=== PATIENT | male | born 1970 | race Caucasian/White ===

== ENCOUNTER 2017-11-19 22:32 | Emergency (ER) | payer SELFPAY ==
[2017-11-19 23:07] LABS: URINE BILIRUBIN NEGATIVE (NEGATIVE); URINE BLOOD NEGATIVE (NEGATIVE); URINE CLARITY Clear (Clear); URINE COLOR Straw (YELLOW); URINE GLUCOSE (UA) 3+ mg/dL (Normal); URINE LEUKOCYTE ESTERASE NEG Leu/uL (Negative); URINE PROTEIN NEGATIVE (NEGATIVE); URINE UROBILINOGEN NORMAL mg/dL (0.2-1.0)
[2017-11-19] MEDS ORDERED: Sodium Chloride 0.9% 1,000 ML IV ONE (23:26)
[2017-11-19] MEDS ORDERED: (Novolin R) Insulin Human Regular 100 units/ml vial IV STA ×2 (23:26→23:42)
[2017-11-19 23:40] LABS: BASO # 0.1 K/uL (0.0-0.2); EOS # 0.1 K/uL (0.0-0.7); EOS % 1.2 % (0.0-4.0); HEMOGLOBIN 14.5 g/dL (12.0-18.0); LYMPH # 2.1 K/uL (1.0-4.3); LYMPH % 28.3 % (20.0-40.0); MEAN CELL VOLUME 82.2 fL (80.0-94.0); MEAN CORPUSCULAR HEMOGLOBIN 28.7 pg (27.0-31.0); MEAN CORPUSCULAR HGB CONC 34.9 g/dL (33.0-37.0); MEAN PLATELET VOLUME 8.3 fL (7.2-11.7); MONO # 0.4 K/uL (0.0-0.8); MONO % 5.2 % (0.0-10.0); NEUT # 4.7 K/uL (1.8-7.0); NEUT % 64.3 % (50.0-75.0); RBC 5.06 Mil/uL (4.40-5.90); RED CELL DISTRIBUTION WIDTH 13.8 % (11.5-14.5); WHITE BLOOD COUNT 7.3 K/uL (4.8-10.8)
[2017-11-19] MEDS ORDERED: (Novolin R) Insulin Human Regular 100 units/ml vial ONE (23:42)
[2017-11-19 23:57] LABS: ALB/GLOB RATIO 1.2 (1.0-2.1); ALBUMIN 4.3 g/dL (3.5-5.0); ALT/SGPT 44 U/L (21-72); AST/SGOT 27 U/L (17-59); BLOOD UREA NITROGEN 20 mg/dL (9-20); CALCIUM 9.4 mg/dl (8.6-10.4); GFR AFRICAN-AMERICAN > 60; GFR NON-AFRICAN AMERICAN > 60
--- NOTE | 2017-11-20 00:04 | C.PDOC ---
History Of Present Illness 47 year old male presents to the ED with c/o polyuria, polydipsia and weight loss. Patient is concerned for Diabetes. Patient had finger stick of 451 upon ED arrival. He denies fever, chills. Time Seen by Provider: 11/19/17 23:25 Chief Complaint (Nursing): Medical Clearance History Per: Patient History/Exam Limitations: no limitations Onset/Duration Of Symptoms: Days Current Symptoms Are (Timing): Still Present Additional History Per: Patient Past Medical History Reviewed: Historical Data, Nursing Documentation, Vital Signs Vital Signs: Last Vital Signs Temp 97.7 F 11/20/17 01:03 Pulse 90 11/20/17 01:03 Resp 20 11/20/17 01:03 BP 97/62 L 11/20/17 01:03 Pulse Ox 98 11/20/17 01:03 - Medical History PMH: No Chronic Diseases Surgical History: No Surg Hx Family History: States: Unknown Family Hx - Social History Hx Alcohol Use: Yes Hx Substance Use: No Review Of Systems Constitutional: Positive for: Weight loss. Negative for: Fever, Chills Genitourinary: Positive for: Other (polyuria, polydipsia) Physical Exam - Physical Exam Appears: Non-toxic, No Acute Distress, Other (wasted ) Skin: Normal Color, Warm, Dry Head: Atraumatic, Normacephalic Eye(s): bilateral: Normal Inspection Oral Mucosa: Dry Neck: Supple Chest: Symmetrical, No Deformity, No Tenderness Cardiovascular: Rhythm Regular, No Murmur Respiratory: Normal Breath Sounds, No Rales, No Rhonchi, No Wheezing Extremity: Normal ROM, Capillary Refill (less than 2 seconds ) Neurological/Psych: Oriented x3, Normal Speech, Normal Cognition Gait: Steady ED Course And Treatment - Laboratory Results Result Diagrams: 11/19/17 23:37 11/19/17 23:37 Lab Interpretation: Abnormal (elev glu, A1C 12.7 H) ECG: Interpreted By Me ECG Rhythm: Sinus Rhythm ECG Interpretation: Normal Rate From EC O2 Sat by Pulse Oximetry: 100 Pulse Ox Interpretation: Normal - Radiology CXR: Interpreted by Me CXR Interpretation: Yes: No Acute Disease Progress Note: IVF, insulin 10 IV Reevaluation Time: 00:04 Reassessment Condition: Improved Medical Decision Making Medical Decision Making: new onset dm, classic presentation start on PO meds and FS BID AC and opt f/u in our Clinic. Disposition Doctor Will See Patient In The: Office Counseled Patient/Family Regarding: Studies Performed, Diagnosis - Disposition Referrals: [facility] [Outside] Disposition: HOME/ ROUTINE Disposition Time: 00:04 Condition: GOOD Additional Instructions: Sigue MEtformin 1000 mg con desayuno y con thanh. Checke el azucar ANTES del desayuno y thanh- apuntalos en ochoa librito Come pan dieta diabetico. [facility]a [facility] en 2-3 semanas- llama para hacer ciro. Prescriptions: Blood-Glucose Control, Normal [Meter-Check] 1 each MC BID #1 each Lancets/Blood Glucose Strips [Fora [id number] Strp-Lnct] 1 each MC BID #60 combo..pkg MetFORMIN [glucoPHAGE] 1,000 mg PO BID #60 tab Instructions: Type 2 Diabetes Forms: [employer] (Latvian) Print Language: KENYAN - Clinical Impression Clinical Impression: Diabetes - Scribe Statement The provider has reviewed the documentation as recorded by the Scribe (Shauna Young) Provider Attestation: All medical record entries made by the Scribe were at my direction and personally dictated by me. I have reviewed the chart and agree that the record accurately reflects my personal performance of the history, physical exam, medical decision making, and the department course for this patient. I have also personally directed, reviewed, and agree with the discharge instructions and disposition.
[2017-11-20 01:05] VITALS: BP 97/62; PULSE 90; RESP 20; TEMP 97.7
[2017-11-20 06:37] VITALS: O2SAT 100
--- NOTE | 2017-11-20 08:55 | RAD ---
Chest x-ray single frontal view History: Diabetic. Comparison: None available. Findings: No focal infiltrate or effusion. Heart size within normal limits. Impression: No focal infiltrate or effusion.
== END 2017-11-20 01:05 | disposition home or self-care (01) ==
LOC: C.ER 22:32
DX: E11.9 Type 2 diabetes mellitus without complications (principal)
CPT/HCPCS: 71045; 80053; 81001; 82009; 82948; 83036; 85025; 96360; 99283; J7040